=== PATIENT | male | born 1995 | race Caucasian/White ===

== ENCOUNTER 2018-01-26 12:33 | Emergency (ER) | payer OTHER ==
[~2018-01-26] VITALS: Ht 177.8 cm; Wt 70.8 kg
[2018-01-26 12:48] VITALS: BP 108/73
[2018-01-26] MEDS ORDERED: PERM60CR19 TP (12:59)
[2018-01-26] MEDS ORDERED: CEPH500C5 PO (12:59)
[2018-01-26] MEDS ORDERED: CHLO473M3 PO (12:59)
[2018-01-26] MEDS ORDERED: IBUP-1984 PO (13:02)
== END 2018-01-26 13:14 | disposition home or self-care (01) ==
LOC: ER 12:33
DX: K08.89 Other specified disorders of teeth and supporting structures (principal); R21 Rash and other nonspecific skin eruption; Z88.0 Allergy status to penicillin; Z79.899 Other long term (current) drug therapy; W22.8XXA Striking against or struck by other objects, initial encounter; Y93.51 Activity, roller skating (inline) and skateboarding; Y92.89 Other specified places as the place of occurrence of the external cause; Y99.8 Other external cause status
CPT/HCPCS: 99283